=== PATIENT | male | born 1970 | race Caucasian/White ===

== ENCOUNTER 2019-01-24 22:29 | Emergency (ER) | payer OTHER ==
[~2019-01-24] VITALS: Ht 190.5 cm; Wt 102.1 kg
[2019-01-24 22:29] VITALS: BP 146/104
[2019-01-24] MEDS ORDERED: IBUPROFEN 600 MG TABLET. PO ONE ×2 (23:30)
--- NOTE | 2019-01-24 23:31 | PHYS DOC ---
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 The tip of this 5th finger is most painful with radiation into his hand and up his arm. He has been icing his finger since the incident. Reports swelling and bruising of area. Denies laceration. Denies other trauma. Review of Systems Review of Systems Musculoskeletal: Admits to joint pain, particularly in R hand. Integument: Denies rash or skin lesions; reports bruising and swelling Neurologic: Denies headache, focal weakness. 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 Complete systems were reviewed and found to be within normal limits, except as documented in this note. Current Medications Current Medications Current Medications Medications (Trade) Dose Ordered Sig/Kinjal Start Time Stop Time Status Last Admin Dose Admin Ibuprofen (Motrin) 600 mg 1X ONCE 01/24/19 23:15 01/24/19 23:16 UNV Physical Exam Physical Exam Constitutional: Well developed, well nourished, uncomfortable and in distress, non-toxic appearance. HENT: Normocephalic, atraumatic Eyes: Conjunctiva normal, no discharge. Neck: Normal range of motion, no tenderness, supple, no stridor. Cardiovascular: Right radial pulse +2, CR < 2 sec Lungs & Thorax: No respiratory distress, no accessory muscle use Skin: Warm, dry, no erythema, mild ecchymosis and swelling to distal finger pad of right 5th finger Extremities: mild tenderness to distal phalanx of right 5th finger Neurologic: Alert and oriented X 3, no focal deficits noted. Psychologic: Affect normal, judgement normal, mood normal. EKG EKG [] Radiology/Procedures Radiology/Procedures REASON: right 5th digit distal pain/crush injury PROCEDURE: FINGER(S) RIGHT Three-view right fifth finger radiographs 01/24/2019 CLINICAL HISTORY: Crush injury to the right fifth finger. A PA digital radiograph of the right hand was obtained. Oblique and lateral digital radiographs of the right fifth finger were obtained. A side plate and bone screws are seen transfixing healed fractures of the right fourth and fifth metacarpals. No acute fracture or dislocation is seen. IMPRESSION: No fracture or dislocation of the right fifth finger is seen. Electronically signed by: Erick Yee MD (01/25/2019 4:28 AM) [facility] Course & Med Decision Making Course & Med Decision Making Patient presents with pain in his right 5th distal phalanx after a crush injury with a steel slab. The finger was noticeably edematous and, though the patient has not lost sensation, he does have limited mobility with that finger due to pain. A finger x-ray was obtained which was not significant for any obvious osseous abnormality. The patient's finger was splinted in the ED prior to discharge. Recommended a RICE regime along with Tylenol/Motrin PRN for pain. Patient stable for discharge with outpatient follow-up with PCP/orthopedics. Orthopedic referral provided.. Discussed findings and plan with patient, who acknowledges understanding and agreement. Dragon Disclaimer Dragon Disclaimer This electronic medical record was generated, in whole or in part, using a voice recognition dictation system. Splinting Splinting : Location: right fifth finger Pre-Made Type: metal (finger splint) Pre-Proc Neuro Vasc Exam: normal Post-Proc Neuro Vasc Exam: normal, unchanged from pre-exam Departure Departure: Impression: Primary Impression: Crush injury to finger Disposition: HOME, SELF-CARE Condition: STABLE Referrals: PCP,NO (PCP) RYAN AVILA MD Patient Instructions: Crush Injury, Fingers or Toes, [id number] Additional Instructions: Maintain splint for comfort for next 3- 4 days Problem Qualifiers Primary Impression: Crush injury to finger Encounter type: initial encounter Qualified Codes: S67.10XA - Crushing injury of unspecified finger(s), initial encounter JASVIR COHN DO Jan 24, 2019 23:31
--- NOTE | 2019-01-25 04:31 | RAD ---
Three-view right fifth finger radiographs 01/24/2019 CLINICAL HISTORY: Crush injury to the right fifth finger. A PA digital radiograph of the right hand was obtained. Oblique and lateral digital radiographs of the right fifth finger were obtained. A side plate and bone screws are seen transfixing healed fractures of the right fourth and fifth metacarpals. No acute fracture or dislocation is seen. IMPRESSION: No fracture or dislocation of the right fifth finger is seen. Electronically signed by: Erick Yee MD (01/25/2019 4:28 AM) [facility]
== END 2019-01-25 00:35 | disposition home or self-care (01) ==
LOC: ER 22:29 → EEVIPCON 22:29 → ER 01-25 00:35
DX: S67.196A Crushing injury of right little finger, initial encounter (principal); W23.0XXA Caught, crushed, jammed, or pinched between moving objects, initial encounter; Y93.89 Activity, other specified; Y92.89 Other specified places as the place of occurrence of the external cause; Y99.8 Other external cause status
CPT/HCPCS: 29130; 73140; 99283

== ENCOUNTER → 2020-01-31 | Outpatient (CLI) | payer OTHER ==
--- NOTE | 2020-01-31 14:59 | RAD ---
PROCEDURE: ELBOW RIGHT 3V STUDY DATE: 01/31/2020 CLINICAL INDICATION / HISTORY: Right elbow pain.. TECHNIQUE: Right Elbow 3 views COMPARISON: None FINDINGS: 3 views of the right elbow demonstrate no evidence of fracture, subluxation, or dislocation. Soft tissues unremarkable. IMPRESSION: No acute osseous abnormality. Electronically signed by: Eliud De La Garza MD (01/31/2020 2:56 PM) [id number]
== END | disposition home or self-care (01) ==
LOC: RAD 14:26 → EEVIPCON 14:26
PROVIDERS: ATTEND Physician Assistant
DX: M77.11 Lateral epicondylitis, right elbow (principal)
CPT/HCPCS: 73080